=== PATIENT | female | born 2000 | race Caucasian/White ===

== ENCOUNTER 2024-05-23 12:33 | Emergency (ER) | payer OTHER, SELFPAY ==
[2024-05-23 12:44] VITALS: BP 116/93; PULSE 79; RESP 16; TEMP 36.6; O2SAT 100
--- NOTE | 2024-05-23 12:55 | ED.GENADULT ---
HPI - General Adult General Chief complaint: Extremity Injury, Upper Stated complaint: RT Hand finger infection Time Seen by Provider: 05/23/24 12:55 Source: patient, RN notes reviewed and old records reviewed Mode of arrival: ambulatory Limitations: no limitations History of Present Illness HPI narrative: 23-year-old presents to the [facility] with right 2nd finger, pain, swelling Patient is a nail biter Related Data Allergies Allergy/AdvReac Type Severity Reaction Status Date / Time No Known Allergies Allergy Unknown Unverified 03/03/15 19:38 Review of Systems Review of Systems: All systems reviewed & are unremarkable except as noted in HPI and below Constitutional: Constitutional: Reports no additional constitutional complaints ENT: Reports system reviewed and no additional complaints, except as documented Cardiovascular: Cardiovascular: Reports no additional cardiovascular complaints, Denies chest pain and Denies dyspnea Respiratory: Respiratory: Reports no additional respiratory complaints, Denies chest congestion, Denies cough and Denies dyspnea Gastrointestinal: Gastrointestinal: Reports no additional gastrointestinal complaints, Denies abdominal pain, Denies nausea and Denies vomiting Musculoskeletal: Musculoskeletal: Reports no additional musculoskeletal complaints Integumentary/Breasts: Skin/Breast: Reports as per HPI PMFSH Comments At the time of my signature, I reviewed and agree with the nursing past medical, surgical, social, and family history. There is no relevant family history pertinent to the patient complaint. Exam Const: General: cooperative, healthy appearing, comfortable, no acute distress, well developed, alert and well nourished Nutritional Appearance: well nourished Orientation/consciousness: patient oriented x3 Limitations: no limitations HENMT: Head: normal to inspection Ears: hearing grossly normal bilaterally and external ears normal Face/Nose/Sinus: Normal external nose present, normal facial exam and face symmetric Face and sinus: normal facial exam and face symmetric Eyes: General: appearance normal, both eyes and all related structures Alignment and Position: alignment normal Periorbital: periorbital findings normal Neck: Neck: normal visual inspection, full ROM, no lymphadenopathy and no meningeal signs Chest: Chest palpation & inspection: normal inspection of the chest Resp: Effort & Inspection: normal respiratory effort and able to speak in complete sentences Cardio: Rate: regular rate Skin: General skin exam: normal color and no rashes or lesions noted Lesions: no lesions Rashes: no rashes Other: Redness noted to the right 2nd finger distal aspect around nail bed. Fluctuant. Neuro: General: patient oriented x3, gait normal, tone normal, moves all extremities and no meningeal signs Cognition (Neuro): normal cognition Speech: normal speech Gait exam (Neuro): Normal gait present Extrem: General: normal to inspection, full ROM, capillary refill normal and normal gait Psych: Appearance: grossly normal and well kempt Mental Status: mental status grossly normal Speech and movement: Normal speech and movement present and Clear speech present Affect: normal affect Attitude: cooperative Course Course Level of Care: Express Care Visit Vital Signs Vital signs: Vital Signs Temperature 97.8 F 05/23/24 12:44 Pulse Rate 79 05/23/24 12:44 Respiratory Rate 16 05/23/24 12:44 Blood Pressure 116/93 H 05/23/24 12:44 Pulse Oximetry 100 05/23/24 12:44 Oxygen Delivery Room Air 05/23/24 12:44 Temperature 97.8 F 05/23/24 12:44 Pulse Rate 79 05/23/24 12:44 Respiratory Rate 16 05/23/24 12:44 Blood Pressure 116/93 H 05/23/24 12:44 Pulse Oximetry 100 05/23/24 12:44 Oxygen Delivery Room Air 05/23/24 12:44 Reviewed Procedures Abscess I/D hand: Date of Incision: 05/23/24 Time of Incision: 13:40 Side (if applicable): right Local Anesthetic: lidocaine 1% (digital block) Amount of anesthesia used (mL): 2.8 Technique: incised with #11 blade Amount of fluid expressed (mL): 15 Irrigation: No Packing used?: none I&D Results: Pus Medical Decision Making MDM Narrative Medical decision making narrative: Patient sitting comfortably in exam room. Nontoxic, vitals stable. Patient in no acute distress Patient presents for paronychia. I and D done. Patient appropriate for outpatient treatment with follow-up Discharge instructions reviewed with patient, as well as provided in writing per nursing staff. The instructions also include specific and strict return/GO TO THE ER as well as f/u information. All questions have been answered, and the patient deny any further questions with discharge and discharge plan. Some parts of this dictation were generated by voice recognition software and may contain typographical and/or grammatical inaccuracies. Differential Diagnosis Differential Diagnosis: Cellulitis, paronychia, felon Medical Records Medical records reviewed: Yes I reviewed the external patient's medical records. Vital Signs Vital Signs: Vital Signs Temperature 97.8 F 05/23/24 12:44 Pulse Rate 79 05/23/24 12:44 Respiratory Rate 16 05/23/24 12:44 Blood Pressure 116/93 H 05/23/24 12:44 Pulse Oximetry 100 05/23/24 12:44 Oxygen Delivery Room Air 05/23/24 12:44 Temperature 97.8 F 05/23/24 12:44 Pulse Rate 79 05/23/24 12:44 Respiratory Rate 16 05/23/24 12:44 Blood Pressure 116/93 H 05/23/24 12:44 Pulse Oximetry 100 05/23/24 12:44 Oxygen Delivery Room Air 05/23/24 12:44 Reviewed Lab Data Lab results reviewed: Yes I reviewed the patient's lab results. Labs: Reviewed Critical Care Time Critical Care Time Critical Care Time: No Discharge Plan Discharge Clinical Impression: Paronychia Patient Disposition: Home, Self-Care Condition: Stable Instructions: Antibiotic Form, Paronychia (ED) Additional Instructions: Soak the finger for 15-20 minutes 3 times a day in warm soapy water and Epson salt. Stop biting nails Take antibiotics as prescribed Follow-up with primary care provider For new or worsening symptoms please go directly to the nearest emergency room Patient Language: Persian Prescriptions: New clindamycin HCl 300 mg capsule 300 mg PO TID 10 Days Qty: 30 0RF Follow-up/Referrals: Jolene Lay MD [Primary Care Provider] - Stand Alone Forms: Work/School Release IP Time of Disposition: 13:55
[2024-05-23] MEDS: LIDOCAINE HCL 1% LOCAL INJ 2 ML AMPUL 4 ML INFILTRATE (13:28)
== END 2024-05-23 14:09 | disposition home or self-care (01) ==
PROVIDERS: Emergency Provider Nurse Practitioner; PCP Pediatrics
DX: L03.011 Cellulitis of right finger (principal)
CPT/HCPCS: 10060; 87070; 87075; 87181; 87205; 99213; G0463; J2003